=== PATIENT | female | born 1990 | race Caucasian/White ===

== ENCOUNTER 2016-11-08 14:16 | Outpatient (CLI) | payer OTHER ==
[~2016-11-08] VITALS: Ht 157.5 cm; Wt 61.9 kg
[~2016-11-08 14:16] MED LIST: BUSP5TAB59 PO; IBUP-1773 PO; NORG1TAB30 PO; OXYC-197 PO; OXYC-471 PO
[2016-11-08] MEDS ORDERED: DICY10CA59 PO (14:27)
[2016-11-08 14:30] VITALS: BP 112/67
[2016-11-08 14:59] LABS: BASOPHILS % (AUTO) 0 % (0-10); EOSINOPHILS # (AUTO) 0.6 10^3/uL (0.0-0.3); EOSINOPHILS % (AUTO) 6 % (0-10); LYMPHOCYTES # (AUTO) 2.4 X 10^3 (1.0-4.0); LYMPHOCYTES % (AUTO) 25 % (12-44); MEAN CORPUSCULAR HEMOGLOBIN 31 PG (25-34); MEAN CORPUSCULAR HGB CONC 35 G/DL (32-36); MEAN CORPUSCULAR VOLUME 88 FL (80-99); MEAN PLATELET VOLUME 11.4 FL (7.4-10.4); MONOCYTES # (AUTO) 0.7 X 10^3 (0.0-1.0); MONOCYTES % (AUTO) 8 % (0-12); NEUTROPHILS # (AUTO) 5.7 X 10^3 (1.8-7.8); NEUTROPHILS % (AUTO) 61 % (42-75); PLATELET COUNT 254 10^3/uL (130-400); RED BLOOD COUNT 4.84 10^6/uL (4.35-5.85); RED CELL DISTRIBUTION WIDTH 12.6 % (10.0-14.5); WHITE BLOOD COUNT 9.4 10^3/uL (4.3-11.0)
== END 2016-11-08 15:00 | disposition home or self-care (01) ==
LOC: PREOP 14:16
PROVIDERS: ATTEND Obstetrics & Gynecology
DX: Z01.812 Encounter for preprocedural laboratory examination (principal); Z11.2 Encounter for screening for other bacterial diseases; N80.9 Endometriosis, unspecified; R10.2 Pelvic and perineal pain
CPT/HCPCS: 36415; 85025; 86850; 86900; 86901; 87081

== ENCOUNTER 2016-11-15 08:23 | Day surgery (SDC) | payer OTHER ==
[~2016-11-15] VITALS: Ht 154.9 cm; Wt 61.4 kg
[~2016-11-15 08:23] MED LIST changes: +DICY10CA59 PO
--- OUTSIDE RECORDS SUMMARY | 2016-11-15 08:31 | XMS REPORT | Continuity of Care Document ---
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 785.6 02/04/2015 JOSELUIS ZHAO SAS ADMINISTRATOR Ot 786.07 02/04/2015 JOSELUIS ZHAO SAS ADMINISTRATOR Ot 786.2 02/04/2015 JOSELUIS ZHAO SAS ADMINISTRATOR Ot 793.19 02/22/2016 Ot N83.9 NONINFLAMMATORY DISORD OF OVARY, FALLOP 03/02/2016 MARCI JERONIMO DO S Ot N83.209 UNSPECIFIED OVARIAN CYST, UNSPECIFIED SI 03/02/2016 MARCI JERONIMO DO S Ot Z01.812 ENCOUNTER FOR PREPROCEDURAL LABORATORY E 03/02/2016 MARCI JERONIMO DO Ot Z11.2 ENCOUNTER FOR SCREENING FOR OTHER BACTER 03/02/2016 Ot N83.9 NONINFLAMMATORY DISORD OF OVARY, FALLOP 03/08/2016 MARCI JERONIMO DO S Ot N80.1 ENDOMETRIOSIS OF OVARY 03/08/2016 MARCI JERONIMO DO S Ot 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 03/08/2016 MARCI JERONIMO DO S Ot N83.201 UNSPECIFIED OVARIAN CYST, RIGHT SIDE 03/08/2016 MARCI JERONIMO DO S Ot N83.202 UNSPECIFIED OVARIAN CYST, LEFT SIDE 03/09/2016 MARCI JERONIMO DO S Ot N80.1 ENDOMETRIOSIS OF OVARY 03/09/2016 MARCI JERONIMO DO S Ot 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 03/09/2016 MARCI JERONIMO DO S Ot N83.201 UNSPECIFIED OVARIAN CYST, RIGHT SIDE 03/09/2016 MARCI JERONIMO DO S Ot N83.202 UNSPECIFIED OVARIAN CYST, LEFT SIDE 11/01/2016 Ot N83.9 NONINFLAMMATORY DISORD OF OVARY, FALLOP 11/08/2016 Ot N83.9 NONINFLAMMATORY DISORD OF OVARY, FALLOP Procedures Results Test Result Range Complete blood count (CBC) with automated white blood cell (WBC) differential - 03/02/16 08:40 Blood leukocytes automated count (number/volume) 7.6 10*3/ uL 4.3-11.0 Blood erythrocytes automated count (number/volume) 4.57 10*6 /uL 4.35-5.85 Venous blood hemoglobin measurement (mass/volume) 14.4 g/dL 11.5-16.0 Blood hematocrit (volume fraction) 42 % 35-52 Automated erythrocyte mean corpuscular volume 91 [foz_us] 80-99 Automated erythrocyte mean corpuscular hemoglobin (mass per erythrocyte) 32 pg 25-34 Automated erythrocyte mean corpuscular hemoglobin concentration measurement ( mass/volume) 35 g/dL 32-36 Automated erythrocyte distribution width ratio 12.6 % 10.0-14.5 Automated blood platelet count (count/volume) 222 10*3/uL 130-400 Automated blood platelet mean volume measurement 11.4 [foz_ us] 7.4-10.4 Automated blood neutrophils/100 leukocytes 62 % 42-75 Automated blood lymphocytes/100 leukocytes 22 % 12-44 Blood monocytes/100 leukocytes 8 % 0-12 Automated blood eosinophils/100 leukocytes 7 % 0-10 Automated blood basophils/100 leukocytes 0 % 0-10 Blood neutrophils automated count (number/volume) 4.7 10*3 1.8-7.8 Blood lymphocytes automated count (number/volume) 1.6 10*3 1.0-4.0 Blood monocytes automated count (number/volume) 0.6 10*3 0.0-1.0 Automated eosinophil count 0.6 10*3/uL 0.0-0.3 Automated blood basophil count (count/volume) 0.0 10*3/uL 0.0-0.1 Blood type T Indirect antibody screen panel - 03/02/16 08:40 ABO+Rh group OP NRG Blood group antibody screen NEGATIVE NRG Methicillin resistant Staphylococcus aureus (MRSA) screening culture - 08:40 Methicillin resistant Staphylococcus aureus (MRSA) screening culture NEG NRG Urine beta human chorionic gonadotropin (hCG) measurement - 03/08/16 08:15 Urine beta human chorionic gonadotropin (hCG) measurement NEGATIVE NEGATIVE Blood type T Indirect antibody screen panel - 03/08/16 08:26 ABO+Rh group OP NRG Transfusion band number [id number] NRG Blood group antibody screen NEGATIVE NRG Complete blood count (CBC) with automated white blood cell (WBC) differential - 11/08/16 14:40 Blood leukocytes automated count (number/volume) 9.4 10*3/ uL 4.3-11.0 Blood erythrocytes automated count (number/volume) 4.84 10*6 /uL 4.35-5.85 Venous blood hemoglobin measurement (mass/volume) 15.0 g/dL 11.5-16.0 Blood hematocrit (volume fraction) 43 % 35-52 Automated erythrocyte mean corpuscular volume 88 [foz_us] 80-99 Automated erythrocyte mean corpuscular hemoglobin (mass per erythrocyte) 31 pg 25-34 Automated erythrocyte mean corpuscular hemoglobin concentration measurement ( mass/volume) 35 g/dL 32-36 Automated erythrocyte distribution width ratio 12.6 % 10.0-14.5 Automated blood platelet count (count/volume) 254 10*3/uL 130-400 Automated blood platelet mean volume measurement 11.4 [foz_ us] 7.4-10.4 Automated blood neutrophils/100 leukocytes 61 % 42-75 Automated blood lymphocytes/100 leukocytes 25 % 12-44 Blood monocytes/100 leukocytes 8 % 0-12 Automated blood eosinophils/100 leukocytes 6 % 0-10 Automated blood basophils/100 leukocytes 0 % 0-10 Blood neutrophils automated count (number/volume) 5.7 10*3 1.8-7.8 Blood lymphocytes automated count (number/volume) 2.4 10*3 1.0-4.0 Blood monocytes automated count (number/volume) 0.7 10*3 0.0-1.0 Automated eosinophil count 0.6 10*3/uL 0.0-0.3 Automated blood basophil count (count/volume) 0.0 10*3/uL 0.0-0.1 Blood type T Indirect antibody screen panel - 11/08/16 14:40 ABO+Rh group OP NRG Blood group antibody screen NEGATIVE NRG Methicillin resistant Staphylococcus aureus (MRSA) screening culture - 14:40 Methicillin resistant Staphylococcus aureus (MRSA) screening culture NEG NRG Encounters ACCT No. Visit Date/Time Discharge Status Pt. Type Provider Facility Loc./Unit Complaint [id number] 11/08/2016 14:16:00 2016 15:00:00 DIS Outpatient MARCI JERONIMO DO [facility] PREOP CHRONIC PELVIC PAIN; ENDOMETRIOSIS [id number] 03/08/2016 08:14:00 2015 13:48:00 DIS Outpatient MARCI JERONIMO DO [facility] PELVIC PAIN; OVARIAN CYSTS [id number] 03/02/2016 08:14:00 2015 10:52:00 DIS Outpatient MARCI JERONIMO DO [facility] PREOP PELVIC PAIN; CHROMOTUBATION [id number] 10/28/2013 08:46:00 2013 23:59:59 CLS Outpatient JOSELUIS ZHAO [facility] RAD [id number] 12/04/2012 09:53:00 2012 23:59:59 CLS Outpatient GERALD KATZ APRN [facility] RAD [id number] 11/15/2016 10:00:00 PEN Preadmit MARCI JERONIMO DO [facility] CHRONIC PELVIC PAIN; ENDOMETRIOSIS [id number] 02/21/2016 10:00:00 Document Registration
[2016-11-15] MEDS ORDERED: ceFAZolin 1 GM/NS 50 ML IVPB IV ONE ×2 (08:45)
[2016-11-15] MEDS ORDERED: CATHETER FLUSH 10 ML SYR IV PRN (08:45)
[2016-11-15 09:10] VITALS: BP 134/73
[2016-11-15] MEDS ORDERED: LACTATED RINGERS 1,000 ML IV PRN (09:48)
[2016-11-15] MEDS ORDERED: LIDOCAINE PF 2% 5 ML (XYLOCAINE) VIAL ONE (10:08)
[2016-11-15] MEDS ORDERED: fentaNYL INJECTION 100 MCG/2 ML AMP ONE (10:08)
[2016-11-15] MEDS ORDERED: SEVOFLURANE (ULTANE) 15 ML INHAL SOLN ONE (10:08)
[2016-11-15] MEDS ORDERED: MIDAZOLAM 2 MG/2 ML (VERSED) VIAL ONE (10:08)
[2016-11-15] MEDS ORDERED: ONDANSETRON 4 MG/2 ML (SDV) Z0FRAN ONE (10:08)
[2016-11-15] MEDS ORDERED: LACTATED RINGERS 1,000 ML IV ONE (10:08)
[2016-11-15] MEDS ORDERED: DEXAMETHASONE PF 10 MG/ML (DECADRON) VIAL ONE (10:08)
[2016-11-15] MEDS ORDERED: proPOfol 200 MG/20 ML (DIPRIVAN) VIAL IV ONE (10:08)
--- NOTE | 2016-11-15 10:40 | Progress Note-Pre Operative ---
Pre-Operative Progress Note H&P Reviewed The H&P was reviewed, patient examined and no changes noted. Date Seen by Provider: Nov 15, 2016 Time Seen by Provider: 10:30 Date H&P Reviewed: Nov 15, 2016 Time H&P Reviewed: 10:30 Pre-Operative Diagnosis: CPP, Tubal occlusion MARCI JERONIMO DO Nov 15, 2016 10:40 am
[2016-11-15] MEDS ORDERED: GLYCOPYRROLATE 0.2 MG/ML (ROBINUL) 2 ML VIAL ONE (11:11)
[2016-11-15] MEDS ORDERED: NEOSTIGMINE (BLOXIVERZ ) 1 MG/1ML 10 ML VIAL ONE (11:11)
[2016-11-15] MEDS ORDERED: D5 LR IV SOLUTION 1,000 ML IV SCH (11:29)
[2016-11-15] MEDS ORDERED: KETOROLAC 30 MG/ML VIAL ONE (11:29)
[2016-11-15] MEDS ORDERED: fentaNYL INJECTION 100 MCG/2 ML AMP IVP PRN (11:30)
[2016-11-15] MEDS ORDERED: ONDANSETRON 4 MG/2 ML (SDV) Z0FRAN IVP PRN ×2 (11:30)
[2016-11-15] MEDS ORDERED: KETOROLAC 30 MG/ML VIAL IVP ONE (11:30)
[2016-11-15] MEDS ORDERED: MEPERIDINE (DEMEROL) INJ 50 MG/ML IVP PRN (11:30)
[2016-11-15] MEDS ORDERED: HYDROcodone/APAP 5 MG/325 MG (LORTAB) TAB PO PRN (11:30)
--- NOTE | 2016-11-15 11:32 | Discharge Inst-Women's Service ---
Discharge Inst-Women's Serv Depart Medication/Instructions New, Converted or Re-Newed RX: RX on Chart Consults/Follow Up Additional Follow Up: Yes Activity Activity: Activity as Tolerated Driving Instructions: You May Drive (do not drive while taking hydrocodone) NO SMOKING: NO SMOKING Nothing Inside Vagina: No Douching, No [place], No Tampons Diet Discharge Diet: No Restrictions Symptoms to Report to : Bleeding Excessive, Pain Increased, Fever Over 101 Degrees F, Vaginal Bleeding Increase, Questions/Concerns For Any Problems or Questions: Contact Your Physician Skin/Wound Care Infection Signs and Symptoms: Increased Redness, Foul Odor of Wound, Increased Drainage, Skin Itchy or Has a Rash, Increased Swelling, Temperature Above 101 F Operative Area Clean and Dry: Keep Incision Clean/Dry Stitches/[place]/Dermabond: Dermabond, Care of Stitches Bathing Instructions: MARCI Andres DO Nov 15, 2016 11:32
[2016-11-15] MEDS ORDERED: HYDR-3812 PO (11:33)
[2016-11-15] MEDS ORDERED: DOCU-143 PO (11:33)
[2016-11-15] MEDS ORDERED: IBUP-1773 PO (11:33)
[2016-11-15] MEDS: morphine INJ 10 MG/ML 1ML (SYR OR VIAL) IVP PRN ×2 (11:44→11:53)
[2016-11-15] MEDS ORDERED: IBUPROFEN 600 MG (MOTRIN) TAB PO SCH (12:00)
--- NOTE | 2016-11-15 12:08 | Progress Note-Post Operative ---
Post-Operative Progess Note Surgeon (s)/Rn Utilization Management Um (s) Surgeon MARCI JERONIMO DO Rn Utilization Management Um: Monica Brito Pre-Operative Diagnosis CPP, Tubal occlusion Post-Operative Diagnosis left tubal occlusion, right tubal patency. Endometiosis of the left uterosacral ligament. Procedure & Operative Findings Date of Procedure 11/15/16 Procedure Performed/Findings Patient was taken to the operating room where general anesthesia was found to be adequate and timeout is performed. I'm beginning the procedure and the patient's pelvis where I perform a bimanual examination. There is no adnexal fullness or masses appreciated on bimanual. A weighted speculum was inserted to the patient's vagina after a Blackwood catheter was placed using sterile technique. A right angle retractor is used to visualize the cervix is grasped at the 12 o'clock position using a long Allis clamp. The uterine cavity depth was then sounded and found to be 7 cm. A kroner uterine manipulator is then placed to a depth of 7 cm without difficulty and the balloon was deployed using an amounts of air. Methylene blue was attached for chromotubation. I then perform a change of gloves and taking my attention to the abdomen where infraumbilically I infiltrate this area using quarter percent Marcaine and make a 5 mm incision. I introduce a varies needle through this incision until intraperitoneal placement was confirmed using saline drop test. I proceed with insufflation using CO2 gas until maximum pressure of 15 mmHg is obtained. I then placed a 5 mm blunt trocar through this incision, and confirm intraperitoneal placement using the laparoscope. No evidence of damage upon entry is noted. I then have the patient placed in steep Trendelenburg and am able to visualize the pelvic anatomy. Bilateral ovaries and tubes looked grossly normal. There are some implants of endometriosis along the posterior aspect of the broad ligament extending to the left uterosacral ligament. A second 5 mm port is placed suprapubically in a similar fashion to the first trocar. Once this is in place am able to cauterize this area of endometriosis using a hook cautery. I then proceeded with chromotubation using methylene blue the right tube is noted to be patent and the left tube is not. This is despite a 100 mL's of methylene blue diluted in normal saline is introduced. After which I could see irrigate the pelvis using normal saline. There is no bleeding noted. Insufflation is then removed after the instruments are removed from the patient's abdomen. The trochars were then removed and the skin is reapproximated using Dermabond. Band-Aids are placed over the incisions. The kroner uterine manipulator is removed, and Blackwood catheter is removed as well. Patient tolerated the procedure well and is taken to the recovery area in stable condition. Lap and sponge count is correct at the end of the procedure instrument count is correct as well. Anesthesia Type GETA Estimated Blood Loss Estimated blood loss (mL): min Specimens/Packing Specimens Removed none MARCI JERONIMO DO Nov 15, 2016 12:08 pm
[2016-11-15 12:15] VITALS: BP 114/64
[2016-11-15 12:45] VITALS: BP 103/61
[2016-11-15 13:15] VITALS: BP 107/62
[2016-11-15 13:35] VITALS: BP 107/62
[2016-11-15] MEDS ORDERED: METHYLENE BLUE 1% INJ 1 ML AMP INJ ONE (14:30)
[2016-11-15] MEDS ORDERED: BUPIVACAINE 0.25% 30 ML (SENSORCAINE) VIAL INJ ONE (14:30)
== END 2016-11-15 13:35 | disposition home or self-care (01) ==
LOC: SDC 08:23
PROVIDERS: ATTEND Obstetrics & Gynecology
DX: N80.3 Endometriosis of pelvic peritoneum (principal); N97.1 Female infertility of tubal origin; N93.8 Other specified abnormal uterine and vaginal bleeding; R10.2 Pelvic and perineal pain; J45.909 Unspecified asthma, uncomplicated; F17.210 Nicotine dependence, cigarettes, uncomplicated
CPT/HCPCS: 84703; 94664

== ENCOUNTER 2017-10-02 12:37 | Outpatient (CLI) | payer OTHER ==
[~2017-10-02] VITALS: Ht 154.9 cm; Wt 56.7 kg
[~2017-10-02 12:37] MED LIST changes: +ACHD5005 PO; +DOCU-143 PO
[2017-10-02] MEDS ORDERED: BUSP10TA95 PO (12:48)
[2017-10-02 12:49] VITALS: BP 120/59
[2017-10-02 13:11] LABS: BASOPHILS % (AUTO) 0 % (0-10); EOSINOPHILS # (AUTO) 0.4 10^3/uL (0.0-0.3); EOSINOPHILS % (AUTO) 4 % (0-10); HEMATOCRIT 43 % (35-52); HEMOGLOBIN 14.9 G/DL (11.5-16.0); LYMPHOCYTES # (AUTO) 1.7 X 10^3 (1.0-4.0); LYMPHOCYTES % (AUTO) 18 % (12-44); MEAN CORPUSCULAR HEMOGLOBIN 32 PG (25-34); MEAN CORPUSCULAR HGB CONC 35 G/DL (32-36); MEAN CORPUSCULAR VOLUME 92 FL (80-99); MEAN PLATELET VOLUME 11.1 FL (7.4-10.4); MONOCYTES # (AUTO) 0.8 X 10^3 (0.0-1.0); MONOCYTES % (AUTO) 8 % (0-12); NEUTROPHILS # (AUTO) 6.4 X 10^3 (1.8-7.8); NEUTROPHILS % (AUTO) 70 % (42-75); PLATELET COUNT 213 10^3/uL (130-400); RED BLOOD COUNT 4.67 10^6/uL (4.35-5.85); RED CELL DISTRIBUTION WIDTH 12.8 % (10.0-14.5); WHITE BLOOD COUNT 9.2 10^3/uL (4.3-11.0)
[2017-10-10] MEDS ORDERED: SIME80TA16 PO (10:29)
[2017-10-10] MEDS ORDERED: IBUP-844 PO (10:29)
[2017-10-10] MEDS ORDERED: DOCU100C37 PO (10:29)
[2017-10-10] MEDS ORDERED: HYDR-34 PO (10:29)
== END 2017-10-02 13:05 | disposition home or self-care (01) ==
LOC: PREOP 12:37
PROVIDERS: ATTEND Obstetrics & Gynecology
DX: Z01.818 Encounter for other preprocedural examination (principal); Z11.2 Encounter for screening for other bacterial diseases; N80.9 Endometriosis, unspecified; R10.2 Pelvic and perineal pain
CPT/HCPCS: 36415; 85025; 86850; 86900; 86901; 87081

== ENCOUNTER 2017-10-10 09:39 | Day surgery (SDC) | payer OTHER ==
[~2017-10-10] VITALS: Ht 154.9 cm; Wt 56.7 kg
[~2017-10-10 09:39] MED LIST changes: +BUSP10TA95 PO
--- OUTSIDE RECORDS SUMMARY | 2017-10-10 09:43 | XMS REPORT | Continuity of Care Document ---
Author Author [facility] Organization [facility] Address Unknown Phone Unavailable Allergies Active Description Code Type Severity Reaction Onset Reported/Identified Relationship to Patient Clinical Status Yes CIPROFLOXACIN [id number] Drug Allergy Severe SWOLLEN THROAT Yes ciprofloxacin [id number] Drug Allergy Severe THROAT/LIPS SWE 03/02/2016 Medications There is no data. Problems Date Dx Coded Attending Type Code Diagnosis Diagnosed By 02/04/2015 GERALD KATZ DATA PROGRAMMER Ot 785.6 02/04/2015 JOSELUIS ZHAO BUSINESS AND MARKETING TEACHER Ot 786.07 02/04/2015 JOSELUIS ZHAO BUSINESS AND MARKETING TEACHER Ot 786.2 02/04/2015 JOSELUIS ZHAO BUSINESS AND MARKETING TEACHER Ot 793.19 02/22/2016 Ot N83.9 NONINFLAMMATORY DISORD OF OVARY, FALLOP 03/02/2016 MARCI JERONIMO DO S Ot N83.209 UNSPECIFIED OVARIAN CYST, UNSPECIFIED SI 03/02/2016 MARCI JERONIMO DO S Ot Z01.812 ENCOUNTER FOR PREPROCEDURAL LABORATORY E 03/02/2016 MARCI JERONIMO DO S Ot Z11.2 ENCOUNTER FOR SCREENING FOR OTHER [...] Ot N83.202 UNSPECIFIED OVARIAN CYST, LEFT SIDE 10/29/2016 S N809 Endometriosis, unspecified 10/29/2016 P R197 Diarrhea, unspecified 10/29/2016 P E860 Dehydration 10/29/2016 S R197 Diarrhea, unspecified 11/01/2016 Ot N83.9 NONINFLAMMATORY DISORD OF OVARY, FALLOP 11/08/2016 Ot N83.9 NONINFLAMMATORY DISORD OF OVARY, FALLOP 11/08/2016 KANDACE KIMBALL MARCI Perales Ot N80.9 ENDOMETRIOSIS, UNSPECIFIED 11/08/2016 KANDACE KIMBALL MARCI Perales Ot R10.2 PELVIC AND PERINEAL PAIN 11/08/2016 KANDACE KIMBALL MARCI Perales Ot Z01.812 ENCOUNTER FOR PREPROCEDURAL LABORATORY E 11/08/2016 KANDACE KIMBALL MARCI Perales Ot Z11.2 ENCOUNTER FOR SCREENING FOR OTHER BACTER 11/12/2016 GERALD KATZ DATA PROGRAMMER Ot 785.6 ENLARGEMENT LYMPH NODES 11/12/2016 VANBECELAERE, JOSELUIS M BUSINESS AND MARKETING TEACHER Ot 786.07 WHEEZING 11/12/2016 VANBECELAERE, JOSELUIS M BUSINESS AND MARKETING TEACHER Ot 786.2 COUGH 11/12/2016 VANBECELAERE, JOSELUIS M BUSINESS AND MARKETING TEACHER Ot 793.19 OTHER NONSPECIFIC ABNORMAL FINDING OF JUMA 11/12/2016 GERALD KATZ DATA PROGRAMMER Ot 785.6 ENLARGEMENT LYMPH NODES 11/12/2016 VANBECELAERE, JOSELUIS M BUSINESS AND MARKETING TEACHER Ot 786.07 WHEEZING 11/12/2016 VANBECELAERE, JOSELUIS M BUSINESS AND MARKETING TEACHER Ot 786.2 COUGH 11/12/2016 VANBECELAERE, JOSELUIS M BUSINESS AND MARKETING TEACHER Ot 793.19 OTHER NONSPECIFIC ABNORMAL FINDING OF JUMA 11/12/2016 GERALD KATZ DATA PROGRAMMER Ot 785.6 ENLARGEMENT LYMPH NODES 11/12/2016 VANBECELAERE, JOSELUIS M BUSINESS AND MARKETING TEACHER Ot 786.07 WHEEZING 11/12/2016 VANBECELAERE, JOSELUIS M BUSINESS AND MARKETING TEACHER Ot 786.2 COUGH 11/12/2016 VANBECELAERE, JOSELUIS M BUSINESS AND MARKETING TEACHER Ot 793.19 OTHER NONSPECIFIC ABNORMAL FINDING OF JUMA 11/14/2016 GERALD KATZ DATA PROGRAMMER Ot 785.6 ENLARGEMENT LYMPH NODES 11/14/2016 VANBECELAERE, JOSELUIS M BUSINESS AND MARKETING TEACHER Ot 786.07 WHEEZING 11/14/2016 VANBECELAERE, JOSELUIS M BUSINESS AND MARKETING TEACHER Ot 786.2 COUGH 11/14/2016 JOSELUIS ZHAO BUSINESS AND MARKETING TEACHER Ot 793.19 OTHER NONSPECIFIC ABNORMAL FINDING OF JUMA 11/15/2016 GERALD KATZ DATA PROGRAMMER Ot 785.6 ENLARGEMENT LYMPH NODES 11/15/2016 JOSELUIS ZHAO BUSINESS AND MARKETING TEACHER Ot 786.07 WHEEZING 11/15/2016 JOSELUIS ZHAO BUSINESS AND MARKETING TEACHER Ot 786.2 COUGH 11/15/2016 JOSELUIS ZHAO BUSINESS AND MARKETING TEACHER Ot 793.19 OTHER NONSPECIFIC ABNORMAL FINDING OF JUMA 11/15/2016 KANDACE DO MARCI S Ot F17.210 NICOTINE DEPENDENCE, CIGARETTES, UNCOMPL 11/15/2016 KANDACE DO MARCI S Ot J45.909 UNSPECIFIED ASTHMA, UNCOMPLICATED 11/15/2016 MARCI JERONIMO DO S Ot 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 11/15/2016 MARCI JERONIMO DO S Ot N93.8 OTHER SPECIFIED ABNORMAL UTERINE AND VAG 11/15/2016 MARCI JERONIMO DO S Ot 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 Results Test Result Range Complete blood count (CBC) with automated white blood cell (WBC) differential - 03/02/16 08:40 Blood leukocytes automated count (number/volume) 7.6 10*3/uL 4.3-11.0 Blood erythrocytes automated count (number/volume) 4.57 10*6/uL 4.35-5.85 Venous blood hemoglobin measurement (mass/volume) 14.4 [...] Automated blood platelet mean volume measurement 11.4 [foz_us] 7.4-10.4 Automated blood neutrophils/100 leukocytes 62 % [...] ABO+Rh group OP NRG Transfusion band number [id number] NRG Blood group antibody screen NEGATIVE NRG CBC(ABN) - 10/29/16 16:28 CBC(ABN) LAB WBC 8.6 K/uL 4.5 - 10.5 #GIOVANNA 5.20 10^3ul 2.00 - 6.90 #LYM 2.2 10^3ul 0.6 - 3.4 #MON 0.70 10^3ul 0.00 - 0.90 #EOS 0.5 10^3ul 0.0 - 0.7 #BAS 0.1 10^3ul 0.0 - 0.2 %GIOVANNA 60.4 % 42.0 - 75.0 %LYM 25.4 % 20.0 - 45.0 %MON 8.0 % 0.0 - 12.0 %EOS 5.4 % 0.0 - 6.0 %BAS 0.8 % 0.0 - 1.0 RBC 5.32 M/uL 4.20 - 5.40 HEMOGLOBIN 16.5 g/dl 12.0 - 16.0 HEMATOCRIT 49 % 38 - 47 MCV 92.2 fL 80.0 - 96.0 MCH 31.0 pg 27.0 - 31.0 MCHC 33.6 g/dL 32.0 - 36.0 RDW 13 % 11 - 14 PLATELET 279 K/uL 150 - 450 MPV 9 fL 0 - 99 COMP MET PANEL - 10/29/16 16:28 GLUCOSE 92 mg/dL 74 - 118 BUN 6 mg/dL 8 - 26 AGE 25 yrs CREA-S 0.75 mg/dl 0.44 - 1.00 CALCIUM 9.7 mg/dL 8.5 - 10.3 BICARBONATE 24 mEq/L 22 - 33 SODIUM 138 mEq/L 136 - 144 POTASSIUM 3.7 MEQ/L 3.6 - 5.1 CHLORIDE 104 mEq/L 101 - 111 GFR NON AA 100 mL/min/BSA GFR AA 121 mL/min/BSA eGFR NON AA >60 mL/min/1.7 eGFR AA >60 mL/min/1.7 TOTAL PROTEIN 8.3 g/dL 6.5 - 8.4 ALBUMIN 4.8 g/dL 3.5 - 5.0 GLOBULIN 3.5 g/dL 1.5 - 3.0 A/G RATIO 1.4 1.5 - 2.5 T BILI 0.5 mg/dL 0.3 - 1.2 ALK PHOS 66 U/L 34 - 104 ALT 23 U/L 14 - 54 AST 20 U/L 15 - 41 COMP MET PANEL LAB CRP-ULTRA SENS(BABN)19790 - 10/29/16 16:28 CRP-UL SENS 1.07 mg/L 0.00 - 7.48 C jejuni+C coli Ag Stl Ql - 10/29/16 16:28 CAMPYLOBACTER NEGATIVE NORMAL: NEGATIVE STOOL WBC - 10/29/16 16:28 STOOL WBC NEGATIVE SHIGA TOXIN - 10/29/16 16:28 SHIGA TOXIN 1 NOT DETECTED SHIGA TOXIN 2 NOT DETECTED Complete blood count (CBC) with automated white blood cell (WBC) differential - 11/08/16 14:40 Blood leukocytes automated count (number/volume) 9.4 10*3/uL 4.3-11.0 Blood erythrocytes automated count (number/volume) 4.84 10*6/uL 4.35-5.85 Venous blood hemoglobin measurement (mass/volume) 15.0 [...] Automated blood platelet mean volume measurement 11.4 [foz_us] 7.4-10.4 Automated blood neutrophils/100 leukocytes 61 % [...] beta human chorionic gonadotropin (hCG) measurement - 11/15/16 08:25 Urine beta human chorionic gonadotropin (hCG) measurement NEGATIVE NEGATIVE Blood type T Indirect antibody screen panel - 11/15/16 08:33 ABO+Rh group OP NRG Transfusion band number [id number] NRG Blood group antibody screen NEGATIVE NRG CBC(ABN) - 01/01/17 17:12 CBC(ABN) LAB WBC 8.8 K/uL 4.5 - 10.5 #GIOVANNA 5.50 10^3ul 2.00 - 6.90 #LYM 2.0 10^3ul 0.6 - 3.4 #MON 0.70 10^3ul 0.00 - 0.90 #EOS 0.5 10^3ul 0.0 - 0.7 #BAS 0.1 10^3ul 0.0 - 0.2 %GIOVANNA 62.4 % 42.0 - 75.0 %LYM 23.0 % 20.0 - 45.0 %MON 7.7 % 0.0 - 12.0 %EOS 6.0 % 0.0 - 6.0 %BAS 0.9 % 0.0 - 1.0 RBC 4.87 M/uL 4.20 - 5.40 HEMOGLOBIN 15.2 g/dl 12.0 - 16.0 HEMATOCRIT 45 % 38 - 47 MCV 92.5 fL 80.0 - 96.0 MCH 31.2 pg 27.0 - 31.0 MCHC 33.7 g/dL 32.0 - 36.0 RDW 13 % 11 - 14 PLATELET 252 K/uL 150 - 450 MPV 9 fL 0 - 99 MANUAL DIFF NOT INDICATED RBC MORPH NOT INDICATED COMP MET PANEL - 01/01/17 17:12 GLUCOSE 90 mg/dL 74 - 118 BUN 7 mg/dL 8 - 26 AGE 26 yrs CREA-S 0.75 mg/dl 0.44 - 1.00 CALCIUM 9.4 mg/dL 8.5 - 10.3 BICARBONATE 29 mEq/L 22 - 33 SODIUM 141 mEq/L 136 - 144 POTASSIUM 3.6 MEQ/L 3.6 - 5.1 CHLORIDE 104 mEq/L 101 - 111 GFR NON AA 99 mL/min/BSA GFR AA 120 mL/min/BSA eGFR NON AA >60 mL/min/1.7 eGFR AA >60 mL/min/1.7 TOTAL PROTEIN 7.8 g/dL 6.5 - 8.4 ALBUMIN 4.5 g/dL 3.5 - 5.0 GLOBULIN 3.3 g/dL 1.5 - 3.0 A/G RATIO 1.4 1.5 - 2.5 T BILI 0.3 mg/dL 0.3 - 1.2 ALK PHOS 74 U/L 34 - 104 ALT 23 U/L 14 - 54 AST 21 U/L 15 - 41 COMP MET PANEL LAB TSH HIGH SENSITIVITY(ABN) - 01/01/17 17:12 TSH 2.36 uIU/mL 0.30 - 3.00 CBC(ABN) - 06/24/17 11:54 CBC(ABN) LAB WBC 10.0 K/uL 4.5 - 10.5 #GIOVANNA 6.60 10^3ul 2.00 - 6.90 #LYM 2.1 10^3ul 0.6 - 3.4 #MON 0.80 10^3ul 0.00 - 0.90 #EOS 0.4 10^3ul 0.0 - 0.7 #BAS 0.1 10^3ul 0.0 - 0.2 %GIOVANNA 66.4 % 42.0 - 75.0 %LYM 21.4 % 20.0 - 45.0 %MON 7.9 % 0.0 - 12.0 %EOS 3.7 % 0.0 - 6.0 %BAS 0.6 % 0.0 - 1.0 RBC 5.18 M/uL 4.20 - 5.40 HEMOGLOBIN 16.3 g/dl 12.0 - 16.0 HEMATOCRIT 48 % 38 - 47 MCV 91.9 fL 80.0 - 96.0 MCH 31.6 pg 27.0 - 31.0 MCHC 34.4 g/dL 32.0 - 36.0 RDW 13 % 11 - 14 PLATELET 222 K/uL 150 - 450 MPV 10 fL 0 - 99 MANUAL DIFF NOT INDICATED RBC MORPH NOT INDICATED COMP MET PANEL - 06/24/17 11:54 GLUCOSE 97 mg/dL 74 - 118 BUN 9 mg/dL 8 - 26 AGE 26 yrs CREA-S 0.74 mg/dl 0.44 - 1.00 CALCIUM 8.9 mg/dL 8.5 - 10.3 BICARBONATE 24 mEq/L 22 - 33 SODIUM 138 mEq/L 136 - 144 POTASSIUM 3.9 MEQ/L 3.6 - 5.1 CHLORIDE 104 mEq/L 101 - 111 GFR NON AA 101 mL/min/BSA GFR AA 122 mL/min/BSA eGFR NON AA >60 mL/min/1.7 eGFR AA >60 mL/min/1.7 TOTAL PROTEIN 7.7 g/dL 6.5 - 8.4 ALBUMIN 4.3 g/dL 3.5 - 5.0 GLOBULIN 3.4 g/dL 1.5 - 3.0 A/G RATIO 1.3 1.5 - 2.5 T BILI 0.5 mg/dL 0.3 - 1.2 ALK PHOS 64 U/L 34 - 104 ALT 25 U/L 14 - 54 AST 24 U/L 15 - 41 COMP MET PANEL LAB AMYLASE - 06/24/17 11:54 AMYLASE 82 U/L 33 - 107 LIPASE - 06/24/17 11:54 LIPASE 115 U/L 114 - 196 HCG SERUM QUAL - 06/24/17 11:54 HCG SERUM NEGATIVE NORMAL: NEGATIVE UA - 06/24/17 12:09 GLUCOSE NEGATIVE UA LAB COLOR LT YELLOW APPEARANCE CLOUDY SPEC GRAVITY 1.025 WBC ESTERASE NEGATIVE NITRATE NEGATIVE PH 5.0 PROTEIN NEGATIVE KETONES 1+ UROBILINOGEN NEGATIVE BILIRUBIN NEGATIVE BLOOD NEGATIVE WHITE CELLS 3-5 RED CELLS NEGATIVE CAST NONE SEEN CRYSTALS NONE SEEN SURFACE EPI TNTC MUCUS NEGATIVE YEAST NEGATIVE BACTERIA 3+ URINE CULTURE(ABN) - 06/24/17 12:23 URINE CULTURE(ABN) LAB Complete blood count (CBC) with automated white blood cell (WBC) differential - 10/02/17 12:59 Blood leukocytes automated count (number/volume) 9.2 10*3/uL 4.3-11.0 Blood erythrocytes automated count (number/volume) 4.67 10*6/uL 4.35-5.85 Venous blood hemoglobin measurement (mass/volume) 14.9 g/dL 11.5-16.0 Blood hematocrit (volume fraction) 43 % 35-52 Automated erythrocyte mean corpuscular volume 92 [foz_us] 80-99 Automated erythrocyte mean corpuscular hemoglobin (mass per erythrocyte) 32 pg 25-34 Automated erythrocyte mean corpuscular hemoglobin concentration measurement ( mass/volume) 35 g/dL 32-36 Automated erythrocyte distribution width ratio 12.8 % 10.0-14.5 Automated blood platelet count (count/volume) 213 10*3/uL 130-400 Automated blood platelet mean volume measurement 11.1 [foz_us] 7.4-10.4 Automated blood neutrophils/100 leukocytes 70 % 42-75 Automated blood lymphocytes/100 leukocytes 18 % 12-44 Blood monocytes/100 leukocytes 8 % 0-12 Automated blood eosinophils/100 leukocytes 4 % 0-10 Automated blood basophils/100 leukocytes 0 % 0-10 Blood neutrophils automated count (number/volume) 6.4 10*3 1.8-7.8 Blood lymphocytes automated count (number/volume) 1.7 10*3 1.0-4.0 Blood monocytes automated count (number/volume) 0.8 10*3 0.0-1.0 Automated eosinophil count 0.4 10*3/uL 0.0-0.3 Automated blood basophil count (count/volume) 0.0 10*3/uL 0.0-0.1 Blood type T Indirect antibody screen panel - 10/02/17 12:59 ABO+Rh group OP NRG Blood group antibody screen NEGATIVE NRG Methicillin resistant Staphylococcus aureus (MRSA) screening culture - 12:59 Methicillin resistant Staphylococcus aureus (MRSA) screening culture NEG NRG Encounters ACCT No. Visit Date/Time Discharge Status Pt. Type Provider Facility Loc./Unit Complaint [id number] 10/02/2017 12:37:00 10/02/2017 13:05:00 DIS Outpatient MARCI JERONIMO DO [facility] PREOP SEVERE ENDOMETRIOSIS,CHRONIC PELVIC PAIN [id number] 11/15/2016 08:23:00 11/15/2016 13:35:00 DIS Outpatient MARCI JERONIMO DO [facility] CHRONIC PELVIC PAIN; ENDOMETRIOSIS [id number] 11/08/2016 14:16:00 11/08/2016 15:00:00 DIS Outpatient MARCI JERONIMO DO [facility] PREOP CHRONIC PELVIC PAIN ; ENDOMETRIOSIS [id number] 03/08/2016 08:14:00 03/08/2016 13:48:00 DIS Outpatient MARCI JERONIMO DO [facility] PELVIC PAIN; OVARIAN CYSTS [id number] 03/02/2016 08:14:00 03/02/2016 10:52:00 DIS Outpatient MARCI JERONIMO DO [facility] PREOP PELVIC PAIN; CHROMOTUBATION [id number] 10/28/2013 08:46:00 10/28/2013 23:59:59 [facility] Outpatient JOSELUIS ZHAO [facility] RAD COUGH,WHEEZING [id number] 12/04/2012 09:53:00 12/04/2012 23:59:59 CLS Outpatient GERALD KATZ APRN [facility] RAD LYMPHADENOPATHY [id number] 10/10/2017 11:00:00 PEN Preadmit MARCI JERONIMO DO [facility] SDC SEVERE ENDOMETRIOSIS,CHRONIC PELVIC PAIN [id number] 02/21/2016 10:00:00 Document Registration 12/20/17 10/19/2016 20:06:55 10/19/2016 23:59:59 CLS Outpatient Edna Ortizline Diaz. [id number] 08/14/2017 00:57:02 08/14/2017 23:59: 59 CLS Emergency [facility] [id number] 08/14/2017 00:57:00 08/14/2017 23:59: 59 [facility] [id number] 08/14/2017 00:57:00 08/14/2017 23:59: 59 CLS Emergency RODARMEL, [facility] [id number] 08/14/2017 00:57:00 08/14/2017 23:59: 59 CLS Emergency RODARMEL, [facility] [id number] 08/14/2017 00:57:00 08/14/2017 01:51: 00 [id number] 06/24/2017 11:47:00 06/24/2017 23:59: 59 CLS Outpatient RODARMEL, [facility] [id number] 06/24/2017 11:31:44 06/24/2017 23:59: 59 CLS Outpatient RODARMEL, [facility] [id number] 06/24/2017 11:47:00 06/24/2017 11:48: 00 DIS Outpatient RODARMEL, [facility] [id number] 01/01/2017 17:10:00 01/01/2017 23:59: 59 CLS Outpatient CARMEN MARX [facility] [id number] 01/01/2017 17:03:26 01/01/2017 23:59: 59 CLS Outpatient FRANCISCO J CARMEN [facility] [id number] 01/01/2017 17:10:00 01/01/2017 17:10: 00 DIS Outpatient CARMEN MARX [facility] [id number] 10/29/2016 18:00:00 10/29/2016 23:59: 59 CLS Outpatient ELAN PRINCE [facility] [id number] 10/29/2016 16:35:10 10/29/2016 23:59: 59 CLS Outpatient ELAN PRINCE [facility] [id number] 10/29/2016 16:35:00 10/29/2016 23:59: 59 CLS Outpatient ELAN PRINCE [facility] [id number] 10/29/2016 16:21:37 10/29/2016 23:59: 59 CLS Outpatient ELAN PRINCE [facility] [id number] 10/29/2016 16:21:00 10/29/2016 23:59: 59 CLS Outpatient ELAN PRINCE [facility] [id number] 10/29/2016 16:20:00 10/29/2016 23:59: 59 CLS Outpatient ELAN PRINCE [facility] [id number] 10/29/2016 15:53:00 10/29/2016 23:59: 59 CLS Outpatient ELAN PRINCE [facility] [id number] 10/29/2016 16:35:00 10/29/2016 18:51: 00 DIS Outpatient ELAN PRINCE [facility] [id number] 10/29/2016 18:00:40 10/29/2016 18:00: 40 CAN Outpatient ELAN PRINCE MD [facility] [id number] 10/29/2016 16:23:00 10/29/2016 16:23: 00 DIS Outpatient ELAN PRINCE MD [facility] [id number] 10/29/2016 16:21:38 10/29/2016 16:21: 38 CAN Outpatient ELAN PRINCE MD [facility] [id number] 10/29/2016 16:20:00 10/29/2016 16:20: 00 DIS Outpatient ELAN PRINCE MD [facility] [id number] 08/14/2017 01:20:57 Document Registration [id number] 06/24/2017 11:48:08 Document Registration [id number] 06/24/2017 11:47:39 Document Registration [id number] 06/24/2017 11:47:18 Document Registration [id number] 06/24/2017 11:47:00 Document Registration [id number] 06/24/2017 11:47:00 Document Registration [id number] 06/24/2017 11:47:00 Document Registration [id number] 06/24/2017 11:47:00 Document Registration [id number] 06/24/2017 11:47:00 Document Registration [id number] 06/24/2017 11:47:00 Document Registration [id number] 06/24/2017 11:47:00 Document Registration [id number] 06/24/2017 11:46:45 Document Registration [id number] 06/24/2017 11:46:31 Document Registration [id number] 01/01/2017 17:10:55 Document Registration [id number] 01/01/2017 17:10:38 Document Registration [id number] 01/01/2017 17:10:00 Document Registration [id number] 01/01/2017 17:10:00 Document Registration [id number] 01/01/2017 17:10:00 Document Registration [id number] 12/17/2016 13:49:39 Document Registration [id number] 12/17/2016 13:49:22 Document Registration [id number] 10/29/2016 18:01:35 Document Registration [id number] 10/29/2016 16:56:43 Document Registration [id number] 10/29/2016 16:35:00 Document Registration [id number] 10/29/2016 16:33:15 Document Registration [id number] 10/29/2016 16:25:38 Document Registration [id number] 10/29/2016 16:23:00 Document Registration [id number] 10/29/2016 16:23:00 Document Registration [id number] 10/29/2016 16:21:00 Document Registration [id number] 10/29/2016 16:21:00 Document Registration [id number] 10/29/2016 16:21:00 Document Registration [id number] 10/29/2016 16:21:00 Document Registration [id number] 10/29/2016 16:20:56 Document Registration [id number] 10/29/2016 16:19:50 Document Registration [id number] 10/29/2016 16:17:46 Document Registration [id number] 10/29/2016 16:08:14 Document Registration [id number] 10/29/2016 16:06:54 Document Registration [id number] 10/29/2016 15:52:51 Unknown [facility]
[2017-10-10] MEDS ORDERED: ceFAZolin INJECTION 1,000 MG in NS (IVPB) 50 ML IV ONE (09:45)
[2017-10-10] MEDS ORDERED: metroNIDAZOLE 500MG/100ML IVPB 100 ML IV ONE (09:45)
[2017-10-10] MEDS ORDERED: ONDANSETRON 4 MG/2 ML (SDV) Z0FRAN ONE (09:46)
[2017-10-10] MEDS ORDERED: LIDOCAINE PF 2% 5 ML (XYLOCAINE) VIAL ONE (09:46)
[2017-10-10] MEDS ORDERED: SEVOFLURANE (ULTANE) 15 ML INHAL SOLN ONE ×4 (09:46→09:51)
[2017-10-10] MEDS ORDERED: proPOfol 200 MG/20 ML (DIPRIVAN) VIAL IV ONE (09:46)
[2017-10-10] MEDS ORDERED: ROCURONIUM 10 MG/ML 5 ML SYRINGE IV ONE (09:46)
[2017-10-10] MEDS ORDERED: DEXAMETHASONE 10 MG/ML (DECADRON) 1 ML VIAL ONE (09:46)
[2017-10-10] MEDS ORDERED: fentaNYL INJECTION 100 MCG/2 ML AMP ONE ×2 (09:46→10:45)
[2017-10-10] MEDS ORDERED: BUPIVACAINE 0.25% 30 ML (SENSORCAINE) VIAL ONE (09:47)
[2017-10-10] MEDS ORDERED: NS (IVPB) 50 ML ONE (09:47)
[2017-10-10] MEDS ORDERED: MIDAZOLAM 2 MG/2 ML (VERSED) VIAL ONE (09:47)
[2017-10-10] MEDS ORDERED: metroNIDAZOLE 500MG/100ML IVPB 100 ML ONE (09:47)
[2017-10-10] MEDS ORDERED: ceFAZolin 1,000 MG (ANCEF) VIAL ONE (09:47)
[2017-10-10 09:50] VITALS: BP 109/65
[2017-10-10] MEDS: LACTATED RINGERS 1,000 ML IV PRN ×2 (09:50→10:40)
--- NOTE | 2017-10-10 10:24 | Progress Note-Pre Operative ---
Pre-Operative Progress Note H&P Reviewed The H&P was reviewed, patient examined and no changes noted. Date Seen by Provider: October 10, 2017 Time Seen by Provider: 10:10 Date H&P Reviewed: October 10, 2017 Time H&P Reviewed: 09:45 Pre-Operative Diagnosis: Severe endometriosis, CPP MARCI JERONIMO DO October 10, 2017 10:24 am
[2017-10-10] MEDS ORDERED: LACTATED RINGERS 1,000 ML IV SCH (10:25)
--- NOTE | 2017-10-10 10:28 | Discharge Inst-Women's Service ---
Discharge Inst-Women's Serv Depart Medication/Instructions New, Converted or Re-Newed RX: RX on Chart Consults/Follow Up Additional Follow Up: Yes Orders/Referrals Dr. Reese in 7-10 days and in 8 weeks Activity Activity: Activity as Tolerated Driving Instructions: No Driving for 1 Week (do not drive while taking hydrocodone) NO SMOKING: NO SMOKING Nothing Inside Vagina: No Douching, No [place], No Tampons Diet Discharge Diet: No Restrictions Symptoms to Report to : Bleeding Excessive, Pain Increased, Fever Over 101 Degrees F, Vaginal Bleeding Increase, Questions/Concerns For Any Problems or Questions: Contact Your Physician Skin/Wound Care Infection Signs and Symptoms: Increased Redness, Foul Odor of Wound, Increased Drainage, Skin Itchy or Has a Rash, Increased Swelling, Temperature Above 101 F Operative Area Clean and Dry: Keep Incision Clean/Dry Stitches/Katelin/Dermabond: Dermabond, Care of Stitches Bathing Instructions: MARCI Andres DO October 10, 2017 10:28 am
[2017-10-10] MEDS ORDERED: DOCU100C37 PO (10:29)
[2017-10-10] MEDS ORDERED: HYDR-34 PO (10:29)
[2017-10-10] MEDS ORDERED: IBUP-844 PO (10:29)
[2017-10-10] MEDS ORDERED: SIME80TA16 PO (10:29)
[2017-10-10] MEDS ORDERED: ONDANSETRON 4 MG/2 ML (SDV) Z0FRAN IV PRN ×2 (10:30→10:45)
[2017-10-10] MEDS ORDERED: ANTACID SUSP 30 ML UDC (MYLANTA) PO PRN ×2 (10:30→10:45)
[2017-10-10] MEDS ORDERED: CHLORASEPTIC LOZENGE MM PRN ×2 (10:30→10:45)
[2017-10-10] MEDS ORDERED: SIMETHICONE 80 MG (MYLICON) CHEW PO PRN ×2 (10:30→10:45)
[2017-10-10] MEDS ORDERED: KETOROLAC 30 MG/ML VIAL IV PRN ×2 (10:30→10:45)
[2017-10-10] MEDS ORDERED: HYDROcodone/APAP 7.5 MG/325 MG (LORTAB, LORCET PLUS) TABLET PO PRN (10:30)
[2017-10-10] MEDS ORDERED: DOCUSATE SODIUM 100 MG (COLACE) CAP PO PRN ×2 (10:30→10:45)
[2017-10-10] MEDS ORDERED: ZOLPIDEM 5 MG (AMBIEN) TAB PO PRN ×2 (10:30→10:45)
[2017-10-10] MEDS ORDERED: NEOSTIGMINE 1 MG/ML 5 ML SYRINGE ONE (11:06)
[2017-10-10] MEDS ORDERED: GLYCOPYRROLATE 0.2 MG/ML (ROBINUL) 2 ML VIAL ONE (11:06)
[2017-10-10] MEDS ORDERED: KETOROLAC 30 MG/ML VIAL ONE (11:36)
[2017-10-10] MEDS ORDERED: HYDROmorphone 1 MG/ML (DILAUDID) 1 ML SYRINGE ONE (11:42)
[2017-10-10] MEDS ORDERED: ONDANSETRON 4 MG/2 ML (SDV) Z0FRAN IVP PRN (11:45)
[2017-10-10] MEDS ORDERED: HYDROmorphone 1 MG/ML (DILAUDID) 1 ML SYRINGE IV PRN (11:45)
[2017-10-10] MEDS ORDERED: fentaNYL INJECTION 100 MCG/2 ML AMP IVP PRN (11:45)
[2017-10-10] MEDS ORDERED: MEPERIDINE (DEMEROL) INJ 50 MG/ML IVP PRN (11:45)
[2017-10-10] MEDS ORDERED: PROMETHAZINE INJ 25 MG/ML (PHENERGAN) AMP IVP PRN (11:45)
[2017-10-10] MEDS ORDERED: KETOROLAC 30 MG/ML VIAL IVP ONE (11:45)
[2017-10-10] MEDS ORDERED: BUPIVACAINE 0.25% 30 ML (SENSORCAINE) VIAL INJ ONE (12:00)
[2017-10-10] MEDS: LACTATED RINGERS 1,000 ML IV SCH ×2 (12:04→12:20)
--- NOTE | 2017-10-10 12:30 | Anesthesia-General Post-Op ---
General Patient Condition Mental Status/LOC: Same as Preop Cardiovascular: Satisfactory Nausea/Vomiting: Absent Respiratory: Satisfactory Pain: Controlled Complications: Absent Post Op Complications Complications None Follow Up Care/Instructions Patient Instructions None needed. Anesthesia/Patient Condition Patient Condition Patient is doing well, no complaints, stable vital signs, no apparent adverse anesthesia problems. No complications reported per nursing. REG [place] CRNA October 10, 2017 12:30
[2017-10-10 12:42] VITALS: BP 100/64
[2017-10-10] MEDS: HYDROcodone/APAP 7.5 MG/325 MG (LORTAB, LORCET PLUS) TABLET PO PRN ×2 (14:20→14:51)
--- NOTE | 2017-10-10 17:16 | OPERATIVE REPORT ---
DATE OF SERVICE: PREOPERATIVE DIAGNOSES: 1. A 26-year-old female with severe endometriosis. 2. Chronic pelvic pain. POSTOPERATIVE DIAGNOSES: 1. A 26-year-old female with severe endometriosis. 2. Chronic pelvic pain. PROCEDURE: Robotic-assisted total laparoscopic hysterectomy with bilateral salpingo-oophorectomy. SURGEON: Dr. Eliseo Reese. DIRECTOR EXECUTIVE COMMUNICATIONS: LANDON Marie. ANESTHESIA: General endotracheal. ESTIMATED BLOOD LOSS: Minimal. URINE OUTPUT 20 mL clear at the end of procedure. FLUIDS: 1500 mL of lactated Ringer solution. FINDINGS: Normal sized uterus with normal appearing fallopian tubes bilaterally enlarged ovaries with multicystic formation noted. Evidence of previous scar tissue from endometriosis ablation from previous surgeries, scarring along the uterosacral ligaments and evidence of some recurrence of endometriosis around the uterosacral ligaments, some dense adhesions as well as some filmy adhesions. SPECIMENS SENT: Uterus, bilateral fallopian tubes and ovaries. INDICATIONS: This 26-year-old female is a patient who has an exhaustive history with me at dealing with chronic pelvic pain, endometriosis, alternative treatment options as well as infertility. She has been attempting for the last 3 to 4 years, all being unsuccessful. We had tried everything including ovulation induction without any success. I discussed with the patient proceeding with possible IVF for conception but due to the significant amounts of pain that were affecting her and her 's relationship as well as severe pains with intercourse, the patient became frustrated and wishes to proceed with the most definitive measure which would be a complete hormonal removal with bilateral salpingo-oophorectomy at the time of hysterectomy. Risk of this procedure was discussed with the patient in detail as well as alternatives and waiting until an older age. It was extensively covered with the patient in her H and P at the previous visit; however, the patient wants to proceed as she has severe affects with quality of life. Risks of the procedure were discussed with the patient in detail including risk of bleeding, infection, damage to surrounding structures including but not limited to bowel, bladder, ureter, kidneys, need for long-term hormonal replacement, the absolute need for smoking cessation with hormone replacement, expectations in the short term from hormonal withdrawal as well as postoperative expectations and possible need for laparotomy and reoperation was all discussed with the patient in detail. After all of her questions were answered, consent was obtained. The patient was taken to the operating room. OPERATIVE REPORT IN DETAIL: Once in the operating room, general anesthesia was found to be adequate, she was placed in dorsal lithotomy position, prepped and draped in normal sterile fashion. Blackwood catheter was placed using sterile technique. Weighted speculum inserted in the patient's vagina. A right angle retractor was used to visualize cervix, grasped at 12 o'clock position using a long Allis clamp. I then placed a 0 Vicryl suture through the anterior lip of the cervix and removed the Allis clamp. I used that suture as my retraction point. I then placed a Jennifer uterine manipulator with an 8 cm manipulation tip and a 3 cm colpotomy ring within the uterus deploying the balloon and advancing the ring around the vaginal fornix. Once this is in place, I performed a change of gloves and removed all the instruments from the patient's vagina before performing the change of gloves. Once the change of gloves was performed, I taken my attention to the abdomen where infraumbilically infiltrated this area using 0.25% Marcaine making 8 mm incision and directed the Veress needle through this incision until intraperitoneal placement, it was confirmed using saline drop test. I then proceeded with insufflation using CO2 gas with opening pressure of 4 mmHg was noted. I proceeded to maximum pressure of 15 mmHg at which point I removed the Veress needle, introduced a blunt camera trocar. Once this was in place, I am able to confirm intraperitoneal placement using da Dusty laparoscope. I then had the patient placed in the steep Trendelenburg, I am able to visualize all the pelvic anatomy as described in my findings above. I then placed two lateral trocars approximately 8 cm lateral to my infraumbilical trocar. These were both 8 mm incisions. The area is infiltrated using 0.25% Marcaine, then the trocars were placed under direct visualization of the laparoscope. Once these were in place, I bring in the da Dusty robot and docked in the appropriate fashion. Using the da Dusty vessel sealer in the left hand and monopolar amanda in the right hand, I performed the following dissection bilaterally. I grasped the infundibulopelvic ligament, bipolar cauterized this and transected using the vessel sealer and then grasped the round ligament, bipolar cauterized and transected using the vessel sealer. I then grasped the entire broad ligament, bipolar cauterized and transected using the vessel sealer. I take this down to the lower uterine segment, at which point I the anterior and posterior leaflets of the broad ligament. The anterior leaflet was taken down to the anterior vaginal fornix, posterior leaflet was taken down to the posterior vaginal fornix. This exposes the lateral uterine vessels, which I am able to skeletonize and bipolar cauterized using the da Dusty vessel sealer. Once this was done, I performed a colpotomy at 12 o'clock position and circumferentially amputate the cervix from the vaginal fornix. Once this was done, the entire specimen was removed through the vagina, I then closed the lateral vaginal apices of the vaginal cuff using 2-0 Vicryl suture in a [id number] fashion, colposuspending it to the uterosacral ligaments. I then closed the remainder of the vaginal cuff using 2-0 V-Loc in a running stitch after which there was no active bleeding noted from any my dissection planes. I then undocked the da Dusty robot and proceeded with remainder of the case laparoscopically. I copiously irrigated the pelvis using normal saline. Once again, no active bleeding was noted from any my dissection planes. I placed FloSeal hemostatic agent over all my planes of dissection. I have replaced and taken out of steep Trendelenburg and removed the lateral trocars under direct visualization of the laparoscope. There was no active bleeding noted from those trocar sites. I then released insufflation through my infraumbilical trocar and introduced 10 mL of 0.25% Marcaine for postoperative pain management. I then removed this trocar as well. The skin was then closed using 4-0 Monocryl in interrupted subcuticular stitch. Dermabond was applied to incision. A sterile bandage were placed over the incisions. Blackwood catheter left in place. Lap and sponge count was correct at the end of the procedure. Instrument count was correct as well. One gram of Ancef and 500 mg of Flagyl given preoperatively for infection prophylaxis. The patient tolerated the procedure well and sent to recovery area in stable condition. Job ID: [id number] DocumentID: [id number] Dictated Date: 10/10/2017 11:45:42 Ice Rink Attendant Date: 10/10/2017 17:15:44 Dictated By: DO MABEL CAO
[2017-10-11] MEDS ORDERED: IBUPROFEN 600 MG (MOTRIN) TAB PO PRN ×2 (03:15)
== END 2017-10-10 17:57 | disposition home or self-care (01) ==
LOC: SDC 09:39 → WS 12:35 → SDC 17:57
PROVIDERS: ATTEND Obstetrics & Gynecology
DX: N83.201 Unspecified ovarian cyst, right side (principal); N83.202 Unspecified ovarian cyst, left side; N80.3 Endometriosis of pelvic peritoneum; N97.9 Female infertility, unspecified; N72 Inflammatory disease of cervix uteri; N80.0 Endometriosis of uterus; N80.1 Endometriosis of ovary; Z72.0 Tobacco use; J45.909 Unspecified asthma, uncomplicated; F41.9 Anxiety disorder, unspecified; F32.9 Major depressive disorder, single episode, unspecified; Z79.899 Other long term (current) drug therapy
CPT/HCPCS: 84703; 86850; 86900; 86901; 88307; 94664

== ENCOUNTER → 2022-01-11 | Outpatient (CLI) | payer OTHER ==
[~2022-01-11] MED LIST changes: +DOCU100C37 PO; +HYDR-34 PO; +IBUP-844 PO; -OXYC-197 PO; -OXYC-471 PO; +OXYC1TAB11 PO; +OXYC1TAB87 PO; +SIME80TA16 PO
--- NOTE | 2022-01-11 19:32 | Diagnostic Imaging Report ---
INDICATION: Left breast pain. EXAMINATION: Ultrasound of the left breast. FINDINGS: The baseline diagnostic mammogram of the left breast performed prior to this study failed to show any sign of malignancy or an acute abnormality to account for the patient's left breast pain. On this study, there is no mass, cyst or abscess identified in the area of concern. Clinical follow-up is recommended. IMPRESSION: There is no evidence for malignancy or for an acute abnormality. Clinical follow-up is recommended. ACR BI-RADS Category 1: Negative. Result letter will be mailed to the patient. Note: At least 10% of breast cancer is not imaged by mammography. Dictated by: Dictated on workstation # [id number]
--- NOTE | 2022-01-12 08:47 | Diagnostic Imaging Report ---
Unilateral diagnostic left mammogram INDICATION: Left breast pain COMPARISON: This is the patient's baseline study. At this time, she does complain of pain in the lateral aspect of the left breast. A marker was placed over the area of concern. There is no primary or secondary sign of malignancy in this region. There is no evidence for an acute abnormality either. The fibroglandular tissue in the left breast is dense and this does limit the sensitivity of this exam. I would recommend that ultrasound be performed for further evaluation. An MLO view of the right breast was also performed. That image also shows dense fibroglandular tissue but fails to reveal any evidence for malignancy. IMPRESSION: 1. There is no evidence for malignancy or for an acute abnormality. Ultrasound of the left breast would recommended for further study. ACR BI-RADS Category 0: Incomplete. (Needs additional imaging evaluation). Result letter will be mailed to the patient. Note: At least 10% of breast cancer is not imaged by mammography. Dictated by: Dictated on workstation # [id number]
== END ==
LOC: RAD 09:45
PROVIDERS: ATTEND Nurse Practitioner
DX: N64.4 Mastodynia (principal)
CPT/HCPCS: 76642; 77065; G0279

== ENCOUNTER 2022-07-14 01:11 | Emergency (ER) | payer OTHER ==
[~2022-07-14] VITALS: Ht 157.5 cm; Wt 68.0 kg
[2022-07-14 01:45] LABS: BASOPHILS # (AUTO) 0.1 10^3/uL (0.0-0.1); BASOPHILS % (AUTO) 1 % (0-10); EOSINOPHILS # (AUTO) 0.6 10^3/uL (0.0-0.3); EOSINOPHILS % (AUTO) 6 % (0-10); HEMATOCRIT 50 % (35-52); HEMOGLOBIN 17.9 g/dL (11.5-16.0); LYMPHOCYTES # (AUTO) 2.2 10^3/uL (1.0-4.0); LYMPHOCYTES % (AUTO) 21 % (12-44); MEAN CORPUSCULAR HEMOGLOBIN 32 pg (25-34); MEAN CORPUSCULAR HGB CONC 36 g/dL (32-36); MEAN CORPUSCULAR VOLUME 90 fL (80-99); MEAN PLATELET VOLUME 10.7 fL (9.0-12.2); MONOCYTES # (AUTO) 0.7 10^3/uL (0.0-1.0); MONOCYTES % (AUTO) 7 % (0-12); NEUTROPHILS # (AUTO) 6.5 10^3/uL (1.8-7.8); NEUTROPHILS % (AUTO) 65 % (42-75); PLATELET COUNT 268 10^3/uL (130-400)
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
[2022-07-14 02:03] LABS: BILIRUBIN,URINE NEGATIVE (NEGATIVE); CLARITY,URINE CLEAR; COLOR,URINE YELLOW; GLUCOSE, URINE (UA) NEGATIVE (NEGATIVE); KETONES,URINE NEGATIVE (NEGATIVE); LEUKOCYTE ESTERASE ,URINE NEGATIVE (NEGATIVE); NITRITE,URINE NEGATIVE (NEGATIVE); PROTEIN,URINE NEGATIVE (NEGATIVE)
[2022-07-14 02:15] LABS: SALICYLATE < 5.0 MG/DL (5.0-20.0)
[2022-07-14 02:18] LABS: BACTERIA,URINE NEGATIVE /HPF
[2022-07-14 02:19] LABS: AMPHETAMINE SCREEN, URINE NEGATIVE (NEGATIVE); BARBITURATE SCREEN URINE NEGATIVE (NEGATIVE); BENZODIAZEPINES SCREEN URINE POSITIVE (NEGATIVE); CANNABINOID SCREEN, URINE POSITIVE (NEGATIVE); COCAINE SCREEN URINE NEGATIVE (NEGATIVE); METHADONE STAT NEGATIVE (NEGATIVE); OPIATE SCREEN URINE NEGATIVE (NEGATIVE); OXYCODONE STAT NEGATIVE (NEGATIVE); PROPOXYPHENE STAT NEGATIVE (NEGATIVE); SQUAMOUS EPITHELIAL CELL,UR 0-2 /HPF; TRICYCLIC ANTIDEPRESSANTS SCRE NEGATIVE (NEGATIVE)
[2022-07-14 02:20] LABS: ACETAMINOPHEN < 10 UG/ML (10-30)
[2022-07-14 03:39] LABS: CHLORIDE 108 MMOL/L (98-107); POTASSIUM 3.6 MMOL/L (3.6-5.0); SODIUM 143 MMOL/L (135-145)
[2022-07-14 03:41] LABS: CALCIUM 9.1 MG/DL (8.5-10.1)
[2022-07-14 03:42] LABS: GLUCOSE 95 MG/DL (70-105); TOTAL PROTEIN 7.9 GM/DL (6.4-8.2)
[2022-07-14 03:43] LABS: CARBON DIOXIDE 18 MMOL/L (21-32)
[2022-07-14 03:44] LABS: BILIRUBIN,TOTAL 0.3 MG/DL (0.1-1.0)
[2022-07-14 03:45] LABS: ALKALINE PHOSPHATASE 75 U/L (40-136); CREATININE SERUM 0.65 MG/DL (0.60-1.30); GFR ESTIMATED 121
[2022-07-14 03:46] LABS: BUN/CREATININE RATIO 11
[2022-07-14 03:48] LABS: ALANINE AMINOTRANSFERASE 24 U/L (0-55)
[2022-07-14] MEDS ORDERED: RT-ALBUTEROL HFA 8.5 GM INHALER IH PRN (05:45)
[2022-07-14] MEDS ORDERED: ACETAMINOPHEN 500 MG TAB (TYLENOL) PO ONE (10:15)
[2022-07-14 13:12] VITALS: BP 122/76
== END 2022-07-14 13:12 | disposition home or self-care (01) ==
LOC: EDUNIT# 01:11 → ER 01:13
DX: S71.112A Laceration without foreign body, left thigh, initial encounter (principal); S71.111A Laceration without foreign body, right thigh, initial encounter; F41.9 Anxiety disorder, unspecified; F32.A Depression, unspecified; X78.1XXA Intentional self-harm by knife, initial encounter
CPT/HCPCS: 80053; 80306; 81000; 84703; 85025; 93041; 99283; G0480 ×3; 36415; 80320; 80329; 93005